=== PATIENT | female | born 1995 | race Caucasian/White ===

== ENCOUNTER 2024-10-11 16:13 | Emergency (ER) | payer SELFPAY ==
[~2024-10-11] VITALS: Ht 165.1 cm; Wt 52.1 kg
[2024-10-11 16:16] VITALS: BP 124/94; PULSE 134; RESP 16; TEMP 98.4; O2SAT 97
--- NOTE | 2024-10-11 17:48 | Physician Documentation ---
History of Present Illness ~ Chief Complaint: Suicidal Ideation Stated Complaint: EVAL Time Seen by MD: 17:45 Medication Reconciliation Allergies: Coded Allergies: No Known Allergies (Unverified , 10/11/24) Physical Exam Vital Signs: Temperature: 98.4, Source: Oral, Heart Rate: 134, Respiratory Rate: 16, BP: 124/94, Pulse Oximetry: 97, Weight: 52.100 Oxygen Flow Rate: 0 Progress Results/Orders Results/Orders Vital Signs 10/11/24 16:16 Temp 98.4 Pulse 134 Resp 16 B/P (MAP) 124/94 Pulse Ox 97 O2 Flow Rate 0 Laboratory Tests Test 10/11/24 16:45 Urine HCG, Qualitative Negative Urine Comment Drug Screen Comment Departure Referrals: NO PRIMARY CARE PROVIDER (PCP) AMADOU SANTOS NP Oct 11, 2024 17:48
[2024-10-11 17:59] LABS: BILIRUBIN,URINE NEGATIVE (Neg); CLARITY,URINE CLEAR (Clear); COLOR,URINE YELLOW (Yellow); GLUCOSE, URINE NEGATIVE (Neg); KETONES,URINE NEGATIVE (Neg); LEUKOCYTE ESTERASE ,URINE NEGATIVE (Neg); NITRITES, URINE NEGATIVE (Neg); OCCULT BLOOD,URINE NEGATIVE (Neg); PROTEIN,URINE NEGATIVE (Neg); UROBILINOGEN,URINE 0.2 E.U/dL (0.2-1.0)
[2024-10-11 18:03] LABS: URINE HCG NEGATIVE (NEG)
[2024-10-11 18:11] LABS: UA COLLECTION TYPE CLN CATCH MIDSTREAM
[2024-10-11 18:17] LABS: URINE AMPHETAMINE SCREEN NEGATIVE (Neg); URINE BARBITUATE SCREEN NEGATIVE (Neg); URINE BENZODIAZEPINES SCREEN NEGATIVE (Neg); URINE CANNABINOID SCREEN POSITIVE (Neg); URINE COCAINE SCREEN NEGATIVE (Neg); URINE METHADONE SCREEN NEGATIVE (Neg); URINE OPIATE SCREEN NEGATIVE (Neg); URINE PHENCYCLIDINE SCREEN NEGATIVE (Neg)
== END 2024-10-11 18:47 | disposition left against medical advice (07) ==
LOC: ER 16:14
DX: R45.851 Suicidal ideations (principal); Z53.21 Procedure and treatment not carried out due to patient leaving prior to being seen by health care provider
CPT/HCPCS: 80305; 81003; 81025